=== PATIENT | female | born 1995 | race Caucasian/White ===

== ENCOUNTER 2017-08-29 12:51 | Emergency (ER) | payer MEDICAID ==
[2017-08-29 12:58] VITALS: BP 112/70
--- NOTE | 2017-08-29 13:06 | ED Physician Documentation ---
PD HPI URI - Stated complaint Stated Complaint: SORE THROAT - Chief complaint Chief Complaint: Heent - History obtained from History obtained from: Patient - History of Present Illness Timing - onset: Other (Healthy young woman, 2 days of sore throat without fevers or body aches, mild cough but no rhinorrhea. She has had strep before and is concerned about this.) Review of Systems Constitutional: denies: Fever, Chills Ears: denies: Ear pain Nose: denies: Rhinorrhea / runny nose, Congestion Throat: reports: Sore throat PD PAST MEDICAL HISTORY - Present Medications Home Medications: Ambulatory Orders Medication Instructions Recorded Confirmed Penicillin V Potassium 500 mg PO QID #40 tablet 08/29/17 - Allergies Allergies/Adverse Reactions: Allergies Allergy/AdvReac Type Severity Reaction Status Date / Time No Known Drug Allergies Allergy Verified 08/29/17 12:58 PD ED PE NORMAL - Vitals Vital signs reviewed: Yes - General General: Alert and oriented X 3, No acute distress - HEENT HEENT: Other (Tonsillar pillars, tonsils, and retropharynx are definitely red but there is no swelling or exudates. She does have modest anterior cervical adenopathy.) - Respiratory Respiratory: No respiratory distress, Clear bilaterally - Derm Derm: No rash - Neuro Neuro: Alert and oriented X 3, Normal speech - Psych Psych: Normal mood, Normal affect Results - Vitals Vitals: Vital Signs - 24 hr 08/29/17 12:56 Temperature 36.2 C L Heart Rate 83 Respiratory 16 Rate Blood Pressure 112/70 O2 Saturation 99 Oxygen O2 Source Room air - Labs Labs: Laboratory Tests 08/29/17 13:00 Group A Strep Rapid POSITIVE H Departure - Departure Disposition: Home, Self Care Clinical Impression: Strep pharyngitis Condition: Good Record reviewed to determine appropriate education?: Yes Instructions: ED Strep Pharyngitis Conf Prescriptions: Penicillin V Potassium 500 mg PO QID #40 tablet Comments: Tylenol or ibuprofen as needed per package instructions for pain. Return if worse. Follow-up with your doctor in 1 week if not better.
[2017-08-29 13:29] LABS: RAPID STREP SCREEN REAGENT QC YELLOW (YELLOW)
== END 2017-08-29 13:40 | disposition home or self-care (01) ==
LOC: ED 12:51
DX: J02.0 Streptococcal pharyngitis (principal)
CPT/HCPCS: 87430; 99283

== ENCOUNTER 2018-01-23 06:07 | Day surgery (SDC) | payer MEDICAID ==
[2018-01-23] MEDS ORDERED: ceFAZolin 2 GM/50 ML 2 GM/50 ML BAG IV ONE (06:39)
[2018-01-23 06:47] LABS: HCG UR QUAL NEGATIVE
[2018-01-23] MEDS ORDERED: LACTATED RINGERS 1,000 ML IV ONE (07:03)
[2018-01-23] MEDS ORDERED: LIDOCAINE 1% 50 ML MDV ONE (07:26)
[2018-01-23] MEDS ORDERED: BACITRACIN OINT TOP ONE (07:27)
[2018-01-23] MEDS ORDERED: BUPIVACAINE 0.5%-EPI 1:200000 PF 10 ML VIAL ONE ×2 (07:27→08:13)
[2018-01-23] MEDS ORDERED: BUPIVACAINE 0.5%-EPI 1:200000 PF 30 ML VIAL SUBQ ONE (08:10)
[2018-01-23] MEDS ORDERED: DEXAMETHASONE 4 MG/ML VIAL IVP ONE (08:25)
[2018-01-23] MEDS ORDERED: fentaNYL 250 MCG/5 ML VIAL IVP ONE (08:25)
[2018-01-23] MEDS ORDERED: KETOROLAC 30 MG/ML VIAL IVP ONE (08:25)
[2018-01-23] MEDS ORDERED: PROPOFOL 200 MG/20 ML VIAL IVP ONE (08:25)
[2018-01-23] MEDS ORDERED: ONDANSETRON 4 MG/2 ML VIAL IVP ONE (08:25)
[2018-01-23] MEDS ORDERED: MIDAZOLAM 2 MG/2 ML VIAL IVP ONE (08:25)
[2018-01-23] MEDS ORDERED: BACITRACIN ZINC OINT 15 GM TOP ONE (08:29)
--- NOTE | 2018-01-23 08:57 | OPERATIVE REPORT ---
Operative Report - General Procedure Date: 01/23/18 Pre-Op Diagnosis: Hemorrhoids Procedure Performed: Hemorrhoidectomy Post Op Diagnosis: Hemorrhoids - Procedure Note Primary Surgeon: Barbie - Other Other Information/Narrative: Indication for procedure: This is a 22-year-old female who is 6 months with persistent external hemorrhoids. Findings: After obtaining informed consent from the patient she was brought into the operating room and positioned on the operating table in the lithotomy position taking noted pressure points after being intubated by anesthesia. She was administered perioperative antibiotics and was then prepped and draped in the usual sterile fashion and a timeout was taken according to protocol. A digital rectal exam and anoscopy was performed demonstrating external hemorrhoids bulging in the right anterior right posterior and left lateral positions, the largest of which was the right anterior. This hemorrhoid was grasped and clamped. Using a 15 blade the skin was opened and the underlying tissue excised with electrocautery. The incision was then closed with a running 3-0 chromic. Hemostasis was noted to have been achieved at the closure of the hemorrhoid. The left lateral hemorrhoid was then managed in a similar manner grasping the hemorrhoid and excising it initially with 15 blade opening the skin followed by a electrocautery to transect the underlying tissue. Again the hemorrhoid incision was closed with a running 3-0 chromic. Finally the right posterior hemorrhoid was also grasped and transected in a similar fashion and closed with 3-0 chromic. A anoscopy was again performed demonstrating hemostasis. The anal cavity was irrigated. 40 cc of marcaine was injected performing an anal block. Bacitracin was then applied followed by fluffs and disposable underwear. The patient was subsequently extubated and taken to the recovery room in stable condition. Estimated blood loss: Minimal Complications: None Specimens: None
[2018-01-23] MEDS: fentaNYL 100 MCG/2 ML VIAL ONE ×2 (09:06→09:11)
[2018-01-23 10:19] VITALS: BP 108/66
== END 2018-01-23 06:08 | disposition home or self-care (01) ==
LOC: SDS 06:07
PROVIDERS: ATTEND Surgery
PROC: 06BY3ZC Excision of Hemorrhoidal Plexus, Percutaneous Approach (ICD-10-PCS; principal; 2018-01-23 07:30)
DX: K64.4 Residual hemorrhoidal skin tags (principal); F32.9 Major depressive disorder, single episode, unspecified; F41.9 Anxiety disorder, unspecified
CPT/HCPCS: 46250; 81025; A9270; J0690; J3010; J7120

== ENCOUNTER 2019-05-27 16:02 | Emergency (ER) | payer MEDICAID ==
--- NOTE | 2019-05-27 16:46 | ED Physician Documentation ---
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 Review of Systems Constitutional: denies: Fever Eyes: denies: Decreased vision Ears: denies: Ear pain Nose: denies: Congestion Throat: denies: Sore throat Cardiac: denies: Chest pain / pressure Respiratory: denies: Dyspnea, Cough GI: reports: Abdominal Pain, Nausea : reports: Vaginal bleeding. denies: Dysuria, Frequency Skin: denies: Rash Musculoskeletal: denies: Neck pain, Back pain, Extremity pain PD PAST MEDICAL HISTORY - Past Medical History Cardiovascular: None Respiratory: None Endocrine/Autoimmune: None GI: Chronic constipation, Hemorrhoids : None HEENT: None Psych: None Musculoskeletal: None Derm: None - Past Surgical History Past Surgical History: Yes Ortho: Other HEENT: Other - Present Medications Home Medications: Ambulatory Orders Medication Instructions Recorded Confirmed No Known Home Medications 01/19/18 01/19/18 - Allergies Allergies/Adverse Reactions: Allergies Allergy/AdvReac Type Severity Reaction Status Date / Time No Known Drug Allergies Allergy Verified 01/19/18 14:13 - Social History Does the pt smoke?: No Smoking Status: Never smoker Does the pt drink ETOH?: Yes - Immunizations Immunizations are current?: Yes PD ED PE NORMAL - Vitals Vital signs reviewed: Yes (normal ) - General General: Alert and oriented X 3, No acute distress, Well developed/nourished - HEENT HEENT: Atraumatic, PERRL, EOMI - Neck Neck: Supple, no meningeal sign - Cardiac Cardiac: RRR, No murmur - Respiratory Respiratory: No respiratory distress, Clear bilaterally - Abdomen Abdomen: Normal bowel sounds, Soft, Non tender, Non distended, No organomegaly - Back Back: No CVA TTP, No spinal TTP - Derm Derm: Normal color, Warm and dry, No rash - Extremities Extremities: No deformity, No edema - Neuro Neuro: Alert and oriented X 3, ticket taker 2-12 intact, No motor deficit, No sensory deficit, Normal speech Eye Opening: Spontaneous Motor: Obeys Commands Verbal: Oriented GCS Score: 15 - Psych Psych: Normal mood, Normal affect Results - Vitals Vitals: Vital Signs - 24 hr 05/27/19 05/27/19 05/27/19 16:05 18:22 18:56 Temperature 36.5 C 37.2 C Heart Rate 75 62 64 Respiratory 18 18 17 Rate Blood Pressure 107/57 L 116/76 O2 Saturation 98 99 100 Oxygen O2 Source Room air - Labs Labs: Laboratory Tests 05/27/19 05/27/19 16:41 17:00 HCG, Quant 52.14 Urine Color YELLOW Urine Clarity CLEAR Urine pH 6.0 Ur Specific [place] 1.025 Urine Protein NEGATIVE Urine Glucose (UA) NEGATIVE Urine Ketones NEGATIVE Urine Occult Blood SMALL H Urine Nitrite NEGATIVE Urine Bilirubin NEGATIVE Urine Urobilinogen 0.2 (NORMAL) Ur Leukocyte Esterase NEGATIVE Urine RBC 6-10 H Urine WBC 0-3 Ur Squamous Epith Cells NONE SEEN Urine Bacteria None Seen Ur Microscopic Review INDICATED Urine Culture Comments NOT INDICATED - Rads (name of study) u/s pelvic Radiology: Prelim report reviewed (Impression: Normal pelvic ultrasound. No sign of intrauterine or extrauterine or adnexal abnormality.), EMP read indepedently, See rad report Procedures - Bedside sono Bedside sono by EMP: With use of bedside ultrasound the pelvis is imaged, I am not able to elucidate the structures as the bladder is empty. I am not able to see a fetus or gestational sac in the uterus. PD MEDICAL DECISION MAKING - ED course Complexity details: reviewed results, re-evaluated patient, considered differential, d/w patient ED course: 24-year-old female with early and vaginal bleeding has no discernible gestational sac on bedside ultrasound exam she has a very low quant and there is no expectation of being able to see this. She has cramping and bleeding and formal ultrasound is ordered. The patient will need serial hCG and follow-up. Departure - Departure Disposition: 01 Home, Self Care Clinical Impression: Threatened miscarriage Condition: Stable Instructions: ED Miscarriage Poss Follow-Up: [facility] [Provider Group] Comments: Today we were not able to detect a fetus on ultrasound. Your "hCG" was 54.2 and you will need to have this re-checked in 2 days. Follow up with [facility]. RETURN FOR HEAVY BLEEDING OR SEVERE PAIN Discharge Date/Time: 05/27/19 18:56
[2019-05-27 16:49] LABS: BILIRUBIN,URINE NEGATIVE (NEGATIVE); GLUCOSE, URINE (UA) NEGATIVE (NEGATIVE); KETONES,URINE (UA) NEGATIVE (NEGATIVE); LEUKOCYTE ESTERASE, URINE NEGATIVE (NEGATIVE); NITRITE,URINE NEGATIVE (NEGATIVE); OCCULT BLOOD,URINE SMALL (NEGATIVE); PROTEIN,URINE NEGATIVE (NEGATIVE); UROBILINOGEN,URINE 0.2 (NORMAL) E.U./dL (NORMAL)
[2019-05-27 16:50] LABS: CLARITY,URINE CLEAR (CLEAR)
[2019-05-27 16:58] LABS: BACTERIA,URINE None Seen /HPF (None Seen); SQUAMOUS EPITHELIAL CELL,UR NONE SEEN (<= Few)
--- NOTE | 2019-05-27 18:46 | Ultrasound Report ---
Reason: 6wks bleeding cramping Procedure Date: 05/27/2019 Accession Number: [id number] / [id number] Procedure: US - OB First Trimester CPT Code: FULL RESULT: EXAM: FIRST TRIMESTER OBSTETRIC ULTRASOUND (Less than 11 weeks) EXAM DATE: 05/27/2019 05:48 PM. CLINICAL HISTORY: 6 weeks . Bleeding and cramping. LMP: 04/14/2019. COMPARISONS: None. TECHNIQUE: Transabdominal and transvaginal ultrasound examination with static image documentation. CLINICAL DATES: EGA 6 weeks 1 day with VIVIENNE 01/19/2020 based on LMP. ASSESSMENT: Gestational Sac: None visualized. Embryo: None visualized. Cardiac activity: None visualized. Yolk sac: Nonvisualized. Amniotic fluid: Not accurately assessed at this gestational age. Early placenta: Not visible at this gestational age. Other: No perigestational fluid collection demonstrated. MATERNAL STRUCTURES: Uterus: Retroverted. Unremarkable. Endometrium: 2 mm thick, normal. No endometrial fluid or gestational sac. Cervix: Closed. Right Ovary/Adnexa: The ovary measures 2.9 x 1.3 x 2.2 cm, volume 4.4 cc. Unremarkable. Left Ovary/Adnexa: The ovary measures 2.6 x 1.9 x 1.7 cm, volume 4.2 cc. Unremarkable. Free Fluid: None. Other: None. IMPRESSION: Normal pelvic ultrasound. No sign of intrauterine or extrauterine or adnexal abnormality. [facility]
[2019-05-27 18:57] VITALS: BP 116/76
== END 2019-05-27 18:56 | disposition home or self-care (01) ==
LOC: ED 16:02
DX: O20.0 Threatened abortion (principal); Z3A.01 Less than 8 weeks gestation of pregnancy
CPT/HCPCS: 36415; 76801; 76817; 81001; 81003; 84702; 87086; 99283

== ENCOUNTER 2019-05-30 15:55 | Outpatient (CLI) | payer MEDICAID | END 2019-05-30 15:56 | disposition home or self-care (01) | LOC: LAB 15:55 | PROVIDERS: ATTEND Nurse Practitioner Obstetrics & Gynecology | DX: O20.0 Threatened abortion (principal) | CPT/HCPCS: 36415; 84702 ==

== ENCOUNTER 2020-03-17 07:00 | Outpatient (CLI) | payer BC, MEDICAID ==
[2020-03-17 21:59] LABS: TRICHOMONAS VAGINALIS DNA NEGATIVE (NEGATIVE)
== END 2020-03-17 23:59 | disposition home or self-care (01) ==
LOC: LAB.R 07:00
PROVIDERS: ATTEND Advanced Practice Midwife
DX: Z30.09 Encounter for other general counseling and advice on contraception (principal)
CPT/HCPCS: 87491; 87591; 87661

== ENCOUNTER 2020-03-17 08:00 | Outpatient (CLI) | payer BC, MEDICAID ==
[2020-03-17 14:42] LABS: HGB - HEMOGLOBIN 13.4 g/dL (12.0-16.0); MEAN CORPUSCULAR HEMOGLOBIN 29.3 pg (27.0-31.0); MEAN CORPUSCULAR HGB CONC 31.9 g/dL (32.0-36.0); MEAN CORPUSCULAR VOLUME 91.7 fL (81.0-99.0); MEAN PLATELET VOLUME 11.2 fL (7.9-10.8); RED BLOOD COUNT 4.58 10^6/uL (4.20-5.40); RED CELL DISTRIBUTION WIDTH 12.8 % (12.0-15.0); WHITE BLOOD COUNT 4.3 x10^3/uL (4.8-10.8)
== END 2020-03-17 23:59 | disposition home or self-care (01) ==
LOC: LAB 08:00
PROVIDERS: ATTEND Advanced Practice Midwife
DX: Z30.09 Encounter for other general counseling and advice on contraception (principal)
CPT/HCPCS: 36415; 85027

== ENCOUNTER 2020-07-28 07:00 | Outpatient (CLI) | payer BC ==
[2020-07-28 17:36] LABS: CANDIDA GROUP DNA POSITIVE (NEGATIVE); CANDIDA KRUSEI DNA NEGATIVE (NEGATIVE); TRICHOMONAS VAGINALIS DNA NEGATIVE (NEGATIVE)
== END 2020-07-28 23:59 | disposition home or self-care (01) ==
LOC: LAB.R 07:00
PROVIDERS: ATTEND Physician Assistant
DX: Z20.2 Contact with and (suspected) exposure to infections with a predominantly sexual mode of transmission (principal)
CPT/HCPCS: 87491; 87591; 87661; 87801

== ENCOUNTER 2020-07-29 07:00 | Outpatient (CLI) | payer BC | END 2020-07-29 23:59 | disposition home or self-care (01) | LOC: LAB.R 07:00 | PROVIDERS: ATTEND Physician Assistant | DX: Z20.2 Contact with and (suspected) exposure to infections with a predominantly sexual mode of transmission (principal) | CPT/HCPCS: 81599; 87491; 87591 ==